=== PATIENT | female | born 1990 | race Caucasian/White ===

== ENCOUNTER → 2021-11-29 | Outpatient (REF) | LOC: M EMP 09:34 | PROVIDERS: ATTEND Family Medicine | DX: Z11.52 Encounter for screening for COVID-19 (principal) ==

== ENCOUNTER → 2022-04-07 | Outpatient (CLI) | payer BC ==
[2022-04-07 18:01] LABS: FOLLICLE STIMULATING HORMONE 4.6 mIU/ML; THYROID STIMULATING HORMONE 1.432 uIU/ML (0.55-4.78)
[2022-04-07 18:02] LABS: LUTEINIZING HORMONE 6.2 mIU/ML
[2022-04-07 18:06] LABS: PERCENT SATURATION 13.6 % (13.2-45.0)
[2022-04-07 18:55] LABS: HEMOGLOBIN A1c 4.8 % (4.0-6.0)
[2022-04-09 17:16] LABS: FOLATE 7.15 NG/ML (>5.4)
== END ==
LOC: M PLALAB 12:12
PROVIDERS: ATTEND Nurse Practitioner Family
DX: L85.3 Xerosis cutis (principal)

== ENCOUNTER → 2022-04-14 | Outpatient (CLI) | payer BC | LOC: M WUC 13:14 | PROVIDERS: ATTEND Nurse Practitioner Family | DX: L98.8 Other specified disorders of the skin and subcutaneous tissue (principal) ==

== ENCOUNTER → 2022-04-17 | Outpatient (REF) ==
[2022-04-17 11:24] LABS: RSV AMPLIFICATION NEGATIVE (NEGATIVE)
== END ==
LOC: M LABSMTC 10:20
PROVIDERS: ATTEND Family Medicine
DX: Z11.52 Encounter for screening for COVID-19 (principal)